=== PATIENT | male | born 1985 | race Caucasian/White ===

== ENCOUNTER → 2021-06-21 | Emergency (ER) | payer OTHER ==
[~2021-06-21] VITALS: Ht 185.4 cm; Wt 113.4 kg
[2021-06-21 15:25] VITALS: BP 140/82
== END | disposition left against medical advice (07) ==
LOC: ER 15:16
DX: M79.601 Pain in right arm (principal); Z53.21 Procedure and treatment not carried out due to patient leaving prior to being seen by health care provider

== ENCOUNTER 2021-07-06 17:10 | Emergency (ER) | payer OTHER ==
[~2021-07-06] VITALS: Ht 182.9 cm; Wt 97.5 kg
[2021-07-06 17:10] VITALS: BP 130/88
[2021-07-06 19:47] LABS: Basophils # (auto) 0 10 ^3/uL (0-0.2); Basophils % (auto) 0.4 % (0.0-2.0); Eosinophils # (auto) 0.1 10 ^3/uL (0-0.8); Eosinophils % (auto) 2.1 % (0.0-7.0); Hematocrit 48.3 % (41.0-53.0); Hemoglobin 16.9 g/dL (13.5-17.5); Lymphocytes # (auto) 1.5 10 ^3/uL (0.4-5.4); Mean Corpuscular Hemoglobin 31.7 pg (28.0-32.0); Mean Corpuscular Hgb Conc. 35.1 g/dL (32.0-36.0); Mean Corpuscular Volume 90.5 fL (80.0-100.0); Monocytes # (auto) 0.4 10 ^3/uL (0-1.3); Monocytes % (auto) 6.1 % (0.0-12.0); Neutrophils # (auto) 4.3 10 ^3/uL (1.6-8.6); Neutrophils % (auto) 67.4 % (37.0-80.0); Nucleated Red Blood Cells % 0.2 %; Red Blood Cells 5.33 10^6/uL (4.5-5.90); Red Cell Distribution Width 13.4 % (11.8-14.3); White Blood Cell 6.4 10^3/uL (4.4-10.8)
[2021-07-06 20:03] LABS: Albumin 4.6 g/dL (3.4-5.0); Calcium 9.8 mg/dL (8.5-10.1); Potassium 4.1 mmol/L (3.5-5.1)
[2021-07-06 20:07] LABS: BUN/Creatinine Ratio 8.6; Bilirubin, Total 0.5 mg/dL (0.2-1.0)
[2021-07-06 21:54] LABS: Urine WBC None Seen /hpf (0 - 3)
[2021-07-06 22:09] LABS: Urine Bacteria NONE SEEN /hpf (None Seen); Urine Blood Negative /uL (Negative); Urine Specific Gravity 1.005 (1.001-1.035)
== END 2021-07-06 20:53 | disposition left against medical advice (07) ==
LOC: ER 17:10 → EDUNIT# 17:10 → EDBD 17:10 → ER 20:53
DX: R07.89 Other chest pain (principal); Z53.29 Procedure and treatment not carried out because of patient's decision for other reasons
CPT/HCPCS: 36415; 71045; 80053; 81001; 83880; 84484; 85025; 93005

== ENCOUNTER 2021-11-25 13:24 | Emergency (ER) | payer OTHER, MEDICAID ==
[~2021-11-25] VITALS: Ht 185.4 cm; Wt 107.0 kg
[2021-11-25 13:31] VITALS: BP 127/76
== END 2021-11-25 14:28 | disposition left against medical advice (07) ==
LOC: ER 13:24
DX: R07.89 Other chest pain (principal); R06.02 Shortness of breath; Z53.21 Procedure and treatment not carried out due to patient leaving prior to being seen by health care provider
CPT/HCPCS: 93005

== ENCOUNTER 2021-12-19 11:41 | Emergency (ER) | payer OTHER, MEDICAID ==
[~2021-12-19] VITALS: Ht 185.4 cm; Wt 109.1 kg
[2021-12-19 12:19] LABS: Basophils # (auto) 0 10 ^3/uL (0-0.2); Basophils % (auto) 0.3 % (0.0-2.0); Eosinophils # (auto) 0.1 10 ^3/uL (0-0.8); Eosinophils % (auto) 2.7 % (0.0-7.0); Hematocrit 47.1 % (41.0-53.0); Hemoglobin 15.9 g/dL (13.5-17.5); Lymphocytes # (auto) 0.9 10 ^3/uL (0.4-5.4); Lymphocytes % (auto) 17.6 % (10.0-50.0); Mean Corpuscular Hgb Conc. 33.9 g/dL (32.0-36.0); Mean Corpuscular Volume 91.4 fL (80.0-100.0); Monocytes # (auto) 0.4 10 ^3/uL (0-1.3); Monocytes % (auto) 7.6 % (0.0-12.0); Neutrophils # (auto) 3.7 10 ^3/uL (1.6-8.6); Neutrophils % (auto) 71.8 % (37.0-80.0); Nucleated Red Blood Cells % 0.1 %; Red Blood Cells 5.15 10^6/uL (4.5-5.90); Red Cell Distribution Width 13.3 % (11.8-14.3); White Blood Cell 5.1 10^3/uL (4.4-10.8)
[2021-12-19 12:29] LABS: Albumin 4.3 g/dL (3.4-5.0); Calcium 9.2 mg/dL (8.5-10.1)
[2021-12-19 12:32] LABS: BUN/Creatinine Ratio 12.6; Bilirubin, Total 0.6 mg/dL (0.2-1.0); Total Protein 7.3 g/dL (6.4-8.2)
[2021-12-19] MEDS ORDERED: FAMOTIDINE 20 MG TAB PO ONE (13:30)
[2021-12-19] MEDS ORDERED: LIDOCAINE VISCOUS 2% 15ML UD PO ONE (13:30)
[2021-12-19] MEDS ORDERED: ALUM & MAG HYDROX-SIMETH LIQ(MAALOX) 30 ML PO ONE (13:30)
[2021-12-19] MEDS ORDERED: ONDANSETRON ODT 4 MG TAB PO ONE (13:30)
[2021-12-19] MEDS ORDERED: OMEP-434 PO (13:48)
[2021-12-19 14:12] VITALS: BP 123/84
== END 2021-12-19 14:11 | disposition home or self-care (01) ==
LOC: ER 11:41
DX: K21.9 Gastro-esophageal reflux disease without esophagitis (principal); F17.210 Nicotine dependence, cigarettes, uncomplicated
CPT/HCPCS: 36415; 71046; 80053; 84484; 85025; 93005; 99285; Q0162

== ENCOUNTER 2021-12-23 21:26 | Emergency (ER) | payer MEDICAID, OTHER ==
[~2021-12-23] VITALS: Ht 185.4 cm; Wt 105.0 kg
[~2021-12-23 21:26] MED LIST: OMEP-434 PO
[2021-12-23 22:04] VITALS: BP 131/85
[2021-12-23 22:45] LABS: Basophils # (auto) 0.1 10 ^3/uL (0-0.2); Basophils % (auto) 1.4 % (0.0-2.0); Eosinophils # (auto) 0.2 10 ^3/uL (0-0.8); Eosinophils % (auto) 3.4 % (0.0-7.0); Hemoglobin 15.9 g/dL (13.5-17.5); Lymphocytes # (auto) 1.7 10 ^3/uL (0.4-5.4); Lymphocytes % (auto) 28.9 % (10.0-50.0); Mean Corpuscular Hemoglobin 30.9 pg (28.0-32.0); Mean Corpuscular Hgb Conc. 34.6 g/dL (32.0-36.0); Mean Corpuscular Volume 89.3 fL (80.0-100.0); Monocytes # (auto) 0.4 10 ^3/uL (0-1.3); Monocytes % (auto) 7.1 % (0.0-12.0); Neutrophils # (auto) 3.5 10 ^3/uL (1.6-8.6); Neutrophils % (auto) 59.2 % (37.0-80.0); Nucleated Red Blood Cells % 0.1 %; Red Blood Cells 5.15 10^6/uL (4.5-5.90); Red Cell Distribution Width 13.1 % (11.8-14.3); White Blood Cell 5.9 10^3/uL (4.4-10.8)
[2021-12-23 23:03] LABS: Albumin 4.5 g/dL (3.4-5.0); Calcium 9.5 mg/dL (8.5-10.1); Potassium 4.1 mmol/L (3.5-5.1)
[2021-12-23 23:05] LABS: BUN/Creatinine Ratio 13.3
[2021-12-23 23:07] LABS: Bilirubin, Total 0.7 mg/dL (0.2-1.0); Total Protein 7.6 g/dL (6.4-8.2)
== END 2021-12-24 05:04 | disposition left against medical advice (07) ==
LOC: ER 21:26
DX: R07.89 Other chest pain (principal); F41.9 Anxiety disorder, unspecified; Z53.29 Procedure and treatment not carried out because of patient's decision for other reasons
CPT/HCPCS: 36415; 71045; 80053; 84484; 85025; 93005

== ENCOUNTER 2021-12-30 18:54 | Emergency (ER) | payer OTHER, MEDICAID ==
[~2021-12-30] VITALS: Ht 185.4 cm; Wt 104.0 kg
[2021-12-30 19:07] VITALS: BP 132/90
[2021-12-30 19:27] LABS: Basophils # (auto) 0 10 ^3/uL (0-0.2); Eosinophils # (auto) 0.2 10 ^3/uL (0-0.8); Monocytes # (auto) 0.5 10 ^3/uL (0-1.3); Neutrophils # (auto) 5.6 10 ^3/uL (1.6-8.6); White Blood Cell 7.4 10^3/uL (4.4-10.8)
[2021-12-30 19:34] LABS: Basophils % (auto) 0.2 % (0.0-2.0); Eosinophils % (auto) 2.7 % (0.0-7.0); Hematocrit 46.5 % (41.0-53.0); Hemoglobin 15.8 g/dL (13.5-17.5); Lymphocytes % (auto) 14.2 % (10.0-50.0); Mean Corpuscular Hemoglobin 30.9 pg (28.0-32.0); Monocytes % (auto) 6.8 % (0.0-12.0); Neutrophils % (auto) 76.1 % (37.0-80.0); Nucleated Red Blood Cells % 0.4 %; Red Cell Distribution Width 13.2 % (11.8-14.3)
[2021-12-30 19:41] LABS: Albumin 4.3 g/dL (3.4-5.0); Calcium 9.1 mg/dL (8.5-10.1); Magnesium 2.2 mg/dL (1.6-2.6); Potassium 3.7 mmol/L (3.5-5.1)
[2021-12-30 19:44] LABS: INR 0.94 (0.9-1.15)
[2021-12-30 19:45] LABS: BUN/Creatinine Ratio 11.3; Bilirubin, Total 0.7 mg/dL (0.2-1.0); Total Protein 7.4 g/dL (6.4-8.2)
== END 2021-12-30 19:51 | disposition left against medical advice (07) ==
LOC: ER 18:54
DX: R07.89 Other chest pain (principal); R20.0 Anesthesia of skin; Z53.21 Procedure and treatment not carried out due to patient leaving prior to being seen by health care provider
CPT/HCPCS: 36415; 71045; 80053; 83735; 83880; 84443; 84484; 85025; 85379; 85610; 85730; 93005

== ENCOUNTER 2023-11-09 17:05 | Emergency (ER) | payer BC, MEDICAID, OTHER | END 2023-11-09 17:40 | disposition left against medical advice (07) | LOC: ER 17:05 | DX: R51.9 Headache, unspecified (principal); Z53.21 Procedure and treatment not carried out due to patient leaving prior to being seen by health care provider ==

== ENCOUNTER 2024-04-10 17:30 | Emergency (ER) | payer BC ==
[~2024-04-10] VITALS: Ht 182.9 cm; Wt 109.0 kg
--- NOTE | 2024-04-10 18:00 | DVH ---
EXAM: XY CHEST PORTABLE CLINICAL HISTORY: CP TECHNIQUE: Single AP view of the chest WID: COMPARISON: CXRP on DOS: 12/30/21 FINDINGS: Lines and tubes: None Chest: The heart size and pulmonary vasculature is within normal limits. No pleural effusion, pneumothorax, or consolidation. The osseous structures are grossly intact. IMPRESSION: No acute cardiopulmonary abnormality.
[2024-04-10 18:04] LABS: Basophils # (auto) 0 10 ^3/uL (0-0.2); Basophils % (auto) 0.5 % (0.0-2.0); Eosinophils # (auto) 0.2 10 ^3/uL (0-0.8); Eosinophils % (auto) 3.4 % (0.0-7.0); Hematocrit 45.6 % (41.0-53.0); Hemoglobin 15.9 g/dL (13.5-17.5); Lymphocytes # (auto) 1.4 10 ^3/uL (0.4-5.4); Lymphocytes % (auto) 25.4 % (10.0-50.0); Mean Corpuscular Hgb Conc. 34.9 g/dL (32.0-36.0); Mean Corpuscular Volume 91.7 fL (80.0-100.0); Monocytes # (auto) 0.4 10 ^3/uL (0-1.3); Monocytes % (auto) 7.4 % (0.0-12.0); Neutrophils # (auto) 3.4 10 ^3/uL (1.6-8.6); Neutrophils % (auto) 63.3 % (37.0-80.0); Nucleated Red Blood Cells % 0.2 %; Platelet Count (auto) 187 10^3/uL (140-450); Red Blood Cells 4.97 10^6/uL (4.5-5.90); Red Cell Distribution Width 13.4 % (11.8-14.3); White Blood Cell 5.4 10^3/uL (4.4-10.8)
[2024-04-10 18:20] LABS: Alanine Aminotransferase 39 U/L (7-40); Anion Gap 5 (5-15); Aspartate Aminotransferase 28 U/L (13-40); BUN/Creatinine Ratio 12.4 (10.0-20.0); Blood Urea Nitrogen 14 mg/dL (9-23); Carbon Dioxide 30 mmol/L (20-31); Chloride 105 mmol/L (98-107); Glucose 89 mg/dL (74-106); Potassium 3.6 mmol/L (3.5-5.1); Sodium 140 mmol/L (136-145)
[2024-04-10 18:21] LABS: Bilirubin, Total 0.7 mg/dL (0.2-1.0); Total Protein 7.6 g/dL (5.7-8.2)
[2024-04-10 18:25] LABS: Alkaline Phosphatase 45 U/L (46-116); Calcium 10.6 mg/dL (8.7-10.4)
[2024-04-10 18:28] LABS: Urine Bacteria None Seen /hpf (None Seen); Urine WBC None Seen /hpf (0 - 3)
--- NOTE | 2024-04-10 18:30 | ECG ---
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
--- NOTE | 2024-04-10 19:06 | ED.PDOC ---
History of Present Illness HPI Comments 39 y/o M, with a history of anxiety, panic attacks, and former tobacco cigarettes and nicotine vape use, presents with c/o of chest pain, shortness of breath, dizziness, and fatigue for 1.5x days, today. Patient endorses on sudden and unprovoked onset of symptoms, intermittently, since initial onset, with no prior history of, that lasts a "few minutes" in duration "every 2 hours." He comments on pain being "heavy" in quality that feels like "[his] heart is slowing down and pumping 'syrup'." Patient reports history of "irregular heart rhythm" that he was diagnosed when following up with a computer meteorologist after having both stress tests and Halter monitor performed in the past but comments on current symptoms feeling different. He reports no additional relevant or pertinent history, such as recent travel, sick contact, or substance use. Patient denies having any palpitations, cough, nausea, vomiting, fever, chills, or other associated symptoms or modifiers at this time. Chief Complaint: Chest Pain Time Seen by MD: 16:15 Primary Care Provider: RAYMUNDO Reviewed Notes: Nurses Notes, Medications, Allergies Allergies: Coded Allergies: NO KNOWN ALLERGIES (Unverified , 07/06/21) Home Meds Active Scripts Omeprazole Magnesium (Omeprazole) 20 Mg Tab, 20 MG PO DAILY for 14 Days, #14 TAB Prov:PHUONG ZHANG MD 12/19/21 Information Source: Patient Mode of Arrival: Ambulatory Severity: Moderate Timing: Days Duration: Intermittent Prehospital treatment: None Review of Systems: REVIEW OF SYSTEMS: Fatigue, no fever, no chills HEENT: No sore throat, no earache, no congestion, no neck pain. Cardiac: Chest pain. No palpitations. Lungs: Shortness of breath, no cough. GI: No nausea, no vomiting, no diarrhea, no constipation, no abdominal pain : No dysuria, frequency, or urgency. No hematuria. Musculoskeletal: No joint pain , no joint swelling, no extremity edema. Skin: No rash, no itching. Neuro: Dizziness, no headache, no weakness Vital Signs Vital Signs Date Time Temp Pulse Resp B/P (MAP) Pulse Ox O2 Delivery O2 Flow Rate FiO2 04/10/24 19:06 67 04/10/24 17:40 99.0 18 113/73 (86) 97 Physical Exam General: Awake, alert and oriented. No acute distress. Skin: Skin in warm, dry and intact. Appropriate color for ethnicity. Nailbeds pink with no cyanosis. HEENT: The head is normocephalic and atraumatic. Conjunctivae are clear without exudates or hemorrhage. Sclera is non-icteric. EOM are intact. No signs of nystagmus. Eyelids are normal in appearance without swelling or lesions. Oral mucosa is pink and moist Neck: The neck is supple with normal range of motion. No JVD. Cardiac: Heart rate and rhythm are normal. No murmurs, gallops, or rubs are auscultated. Respiratory: No signs of respiratory distress. Lung sounds are clear in all lobes bilaterally without rales, ronchi, or wheezes. Abdominal: Abdomen is soft, non-tender without distention. Bowel sounds are present and normoactive in all four quadrants. Extremities: Upper and lower extremities are atraumatic in appearance without deformity or edema. Neurological: The patient is awake, alert and oriented to person, place, and time with normal speech. Speech is clear. There is no facial asymmetry. Psychiatric: Appropriate mood and affect. Good judgement and insight. No visual or auditory hallucinations. Past Medical History PAST MEDICAL HISTORY: Anxiety Past Medical History (Other): panic attacks Surgical History: Denies all surgeries Family History Family History: Reviewed,noncontributory to illness Social History Smoker: Non-Smoker (former tobacco cigarettes and nicotine vape use ) Alcohol: Sober Drugs: Denies Drug Use Lives In: Home Was a procedure done? Was a procedure done?: No EKG EKG : Pulse Rate (adult): 67 [place]: Normal Cardiac Rhythm: NSR Block: None Hypertrophy: None ST: Normal Differential Dx Considerations may include: PA, PE, arrhythmia, ACS, anxiety, panic attacks, angina, costochondritis, pericarditis, PNA, viral syndrome, URI X-Ray, Labs, Meds, VS Vital Signs Date Time Temp Pulse Resp B/P (MAP) Pulse Ox O2 Delivery O2 Flow Rate FiO2 04/10/24 19:06 67 04/10/24 18:28 67 04/10/24 17:40 99.0 81 18 113/73 (86) 97 04/10/24 17:36 74 Lab Test 04/10/24 18:51 04/10/24 17:47 04/10/24 17:45 Range/Units Troponin I High Sensitivity Pending 4 </=54 ng/L White Blood Count 5.4 4.4-10.8 10^3/uL Red Blood Count 4.97 4.5-5.90 10^6/uL Hemoglobin 15.9 13.5-17.5 g/dL Hematocrit 45.6 41.0-53.0 % Mean Corpuscular Volume 91.7 80.0-100.0 fL Mean Corpuscular Hemoglobin 32.0 28.0-32.0 pg Mean Corpuscular Hemoglobin Concent 34.9 32.0-36.0 g/dL Red Cell Distribution Width 13.4 11.8-14.3 % Platelet Count 187 140-450 10^3/uL Mean Platelet Volume 7.7 6.9-10.8 fL Neutrophils (%) (Auto) 63.3 37.0-80.0 % Lymphocytes (%) (Auto) 25.4 10.0-50.0 % Monocytes (%) (Auto) 7.4 0.0-12.0 % Eosinophils (%) (Auto) 3.4 0.0-7.0 % Basophils (%) (Auto) 0.5 0.0-2.0 % Neutrophils # (Auto) 3.4 1.6-8.6 10 ^3/uL Lymphocytes # (Auto) 1.4 0.4-5.4 10 ^3/uL Monocytes # (Auto) 0.4 0-1.3 10 ^3/uL Eosinophils # (Auto) 0.2 0-0.8 10 ^3/uL Basophils # (Auto) 0 0-0.2 10 ^3/uL Nucleated Red Blood Cells 0.2 % Sodium Level 140 136-145 mmol/L Potassium Level 3.6 3.5-5.1 mmol/L Chloride Level 105 98-107 mmol/L Carbon Dioxide Level 30 20-31 mmol/L Anion Gap 5 5-15 Blood Urea Nitrogen 14 9-23 mg/dL Creatinine 1.13 0.700-1.30 mg/dL Glomerular Filtration Rate Calc 84 >90 mL/min BUN/Creatinine Ratio 12.4 10.0-20.0 Serum Glucose 89 74-106 mg/dL Calcium Level 10.6 H 8.7-10.4 mg/dL Total Bilirubin 0.7 0.2-1.0 mg/dL Aspartate Amino Transferase (AST) 28 13-40 U/L Alanine Aminotransferase (ALT) 39 7-40 U/L Alkaline Phosphatase 45 L 46-116 U/L Total Protein 7.6 5.7-8.2 g/dL Albumin 5.0 H 3.2-4.8 g/dL Urine Color Light-yellow Yellow Urine Clarity Clear Clear Urine pH 7.0 5.0-9.0 Urine Specific [place] 1.017 1.001-1.035 Urine Protein Negative Negative Urine Ketones Negative Negative Urine Blood Negative Negative /uL Urine Nitrite Negative Negative Urine Bilirubin Negative Negative Urine Urobilinogen Normal Negative mg/dL Urine Leukocyte Esterase Negative Negative /uL Urine RBC 1 0 - 3 /hpf Urine WBC None seen 0 - 3 /hpf Urine Squamous Epithelial Cells None seen <5 /hpf Urine Bacteria None seen None Seen /hpf Urine Glucose Normal Normal mg/dL [place] [address] Ph: [phone] DIAGNOSTIC IMAGING Diagnostic Imaging Report : [id number] Signed PATIENT: KALI GARVEY ACCT: [id number] UNIT: [id number] : 1985 LOC: ER ROOM / BED: / AGE / SEX: 39 / M ADM STATUS: REG ER SERVICE 37 ORDERING PHYSICIAN: RINA MACK PROCEDURE(s): CXRP - CHEST PORTABLE REASON: CP ORDER NUMBER(s): [id number], ACCESSION NUMBER(s): [id number] EXAM: XY CHEST PORTABLE CLINICAL HISTORY: CP TECHNIQUE: Single AP view of the chest WID: COMPARISON: CXRP on DOS: 12/30/21 FINDINGS: Lines and tubes: None Chest: The heart size and pulmonary vasculature is within normal limits. No pleural effusion, pneumothorax, or consolidation. The osseous structures are grossly intact. IMPRESSION: No acute cardiopulmonary abnormality. ATED BY: AYLEEN SPRINGER MD DICTATED DATE/TIME: 04/10/241757 SIGNED BY: AYLEEN SPRINGER MD SIGNED DATE/TIME: 04/10/241757 CC: Time of 1ST Reevaluation: 16:45 Reevaluation 1ST: Unchanged Patient Education/Counseling: Diagnosis, Treatment Family Education/Counseling: No Family Present Departure 1 Departure Time of Disposition: 19:45 Impression: Primary Impression: Chest pain Disposition: 01 HOME / SELF CARE / HOMELESS Condition: Stable Additional Instructions: ED DISCHARGE INSTRUCTIONS Instructions: Please read all instructions provided in this packet carefully. Although you have been discharged from the Emergency Department, this does not mean that you have a "clean bill of health". No definitive diagnosis for your symptoms has been made today. It is possible that you are in the process of developing a serious illness. This is why you must return to the ED without fail if any new or worsening symptoms (especially if your symptoms include chest pain, trouble breathing, abdominal pain, fever, headache, confusion, trouble seeing, or trouble walking) It is also very important that you see a primary care doctor within the next 3-5 days to follow up. Schedule an appointment with your computer meteorologist for further evaluation of your symptoms within the next week as well. If you are unable to get an appointment, return to the ED for re-evaluation. CHEST PAIN EDUCATION There are many things that can cause chest pain. Some are not serious and will get better on their own in a few days. But some kinds of chest pain need more testing and treatment. Your doctor may have recommended a follow-up visit in the next few days. If you are not getting better, you may need more tests or treatment. Even though your doctor has released you, you still need to watch for any problems. The doctor carefully checked you, but sometimes problems can develop later. If you have new symptoms or if your symptoms do not get better, get medical care right away. If you have worse or different chest pain or pressure that lasts more than 5 minutes or you passed out (lost consciousness), call 911 or seek other emergency help right away. A medical visit is only one step in your treatment. Even if you feel better, you still need to do what your doctor recommends, such as going to all suggested follow-up appointments and taking medicines exactly as directed. This will help you recover and help prevent future problems. How can you care for yourself at home? Rest until you feel better. Take your medicine exactly as prescribed. Call your doctor if you think you are having a problem with your medicine. Do not drive after taking a prescription pain medicine. When should you call for help? Call 911 if: You passed out (lost consciousness). You have severe difficulty breathing. You have symptoms of a heart attack. These may include: Chest pain or pressure, or a strange feeling in your chest. Sweating. Shortness of breath. Nausea or vomiting. Pain, pressure, or a strange feeling in your back, neck, jaw, or upper belly or in one or both shoulders or arms. Lightheadedness or sudden weakness. A fast or irregular heartbeat. After you call 911, the printing machine operator tape rules may tell you to chew 1 adult-strength or 2 to 4 low-dose aspirin. Wait for an ambulance. Do not try to drive yourself. Call your doctor now or seek immediate medical care if: You have any trouble breathing. You have new or different chest pain. You are dizzy or lightheaded, or you feel like you may faint. Watch closely for changes in your health, and be sure to contact your doctor if you do not get better as expected. Current as of: October 26, 2023 Author: [employer] Staff? Comments Extensive evaluation was performed in attempt to identify or rule out: (See differential diagnosis section) The following tests were ordered, and results were reviewed by me: (See diag nostic results section) The following test were independently interpreted by me: N/A I reviewed and agreed with the following test results read by other providers: N/A I reviewed the following notes from the pt's past medical encounters: (None available at this time) Additional information was gathered from interviewing the following independent historians: N/A Discussion of management or test interpretation with external physician/other qualified health care team coordinator scheduler: N/A Addressed [ ]one or more chronic illnesses with severe exacerbation, progression, or side effects of treatment: [ ]an acute or chronic illness that poses a threat to life or bodily function: [ ] Decision regarding hospitalization or escalation of hospital level of care: Risk and benefits of admission for further treatment of patient's condition was considered. Due to patient's current clinical condition, high risk of decline and poor outcome if discharged and need for further inpatient management and monitoring, patient will be admitted to the hospital. Drug therapy requiring intensive monitoring for toxicity: N/A Parenteral controlled substances: N/A Decision regarding elective major surgery with identified patient or procedure risk factors: N/A Decision regarding emergency major surgery: N/A Decision not to resuscitate or to de-escalate care because of poor prognosis: N/A Diagnosis or treatment significantly limited by social determinants of health: N/A Decision regarding hospitalization or escalation of hospital level of care: Risks and benefits of admission for further treatment of patient's condition was considered however due to patient's stable condition patient will be discharged to follow up closely or return to care for worsening of condition or inability to follow up. Critical Care Note Critical Care Time?: No Stability Stability form required: No Heart Score Heart Score: Heart Score Response (Comments) Value History Slightly Suspicious 0 EKG Normal 0 Age <45 0 Risk Factors 1 or 2 risk factors 1 Total 1 I personally scribed for ZACK MONGE MD ([email or web address]) on 04/10/24 at 19:06. Electronically submitted by Red Burnett ([email or web address]). ZACK MONGE MD Apr 10, 2024 19:06
[2024-04-10 19:14] LABS: Urine Blood Negative /uL (Negative); Urine Clarity Clear (Clear); Urine Color Light-Yellow (Yellow); Urine Protein, UAD Negative (Negative); Urine Specific Gravity 1.017 (1.001-1.035); Urine Squamous Epithelial Cell None Seen /hpf (<5); Urine Urobilinogen Normal (Negative)
[2024-04-10 20:27] VITALS: BP 132/85; PULSE 70; RESP 20; TEMP 98; O2SAT 96
== END 2024-04-10 20:33 | disposition home or self-care (01) ==
LOC: ER 17:30
DX: R07.9 Chest pain, unspecified (principal); R06.02 Shortness of breath; R42 Dizziness and giddiness; Z79.899 Other long term (current) drug therapy
CPT/HCPCS: 36415; 71045; 80053; 81001; 84484; 85025; 93005

== ENCOUNTER 2024-05-31 07:57 | Inpatient (IN) | payer BC ==
[~2024-05-31] VITALS: Ht 185.4 cm; Wt 111.0 kg
--- NOTE | 2024-05-31 08:04 | ECG ---
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
[2024-05-31] MEDS: ASPirin 325 MG TAB PO ONE (08:29)
[2024-05-31] MEDS: LORazepam 2MG/ML-1ML VIAL IV ONE (08:30)
[2024-05-31] MEDS: NITROGLYCERIN 0.4 MG SL TAB SL ONE (08:30)
--- NOTE | 2024-05-31 08:35 | ED.PDOC ---
HPI Comments 39 y/o M, with PMHX of anxiety presents to the ED for CC of chest pain. Patient states, that he has been experiencing left sided non-radiating chest pain xhours. Patient relays, that pain came on suddenly with light exertion at work. Patient comments on, experiencing similar symptoms in past with associated shortness of breath and chest discomfort. Patient describes pain as tightness. Patient denies palpitations, abdominal pain, headache, numbness, or weakness. No other associated symptoms, modifiers, recent injuries or sick contacts at this time. Chief Complaint: Chest Pain Time Seen by MD: 08:20 Primary Care Provider: RAYMUNDO Reviewed Notes: Nurses Notes, Medications, Allergies Allergies: Coded Allergies: NO KNOWN ALLERGIES (Unverified , 07/06/21) Home Meds Active Scripts Omeprazole Magnesium (Omeprazole) 20 Mg Tab, 20 MG PO DAILY for 14 Days, #14 TAB Prov:PHUONG ZHANG MD 12/19/21 Information Source: Patient Mode of Arrival: Ambulatory Severity: Mild Timing: Hours Duration: Since onset Prehospital treatment: None Location: Chest (L) Radiation: No Radiation Quality: Tightness Onset: With Light Exertion Cardiac Risk Factors: None PE Risk Factors: None History of: Similar pain in past Modifying Factors: Nothing Associated Signs and Symptoms: SOB Past Medical History PAST MEDICAL HISTORY: Anxiety Surgical History: Denies all surgeries Family History Family History: Reviewed,noncontributory to illness Social History Smoker: Non-Smoker Alcohol: Sober Drugs: Denies Drug Use Lives In: Home Constitutional: denies: chills, diaphoresis, fatigue, fever, malaise, sweats, weakness, others EENTM: denies: blurred vision, double vision, ear bleeding, ear discharge, ear drainage, ear pain, ear ringing, eye pain, eye redness, hearing loss, mouth pain, mouth swelling, nasal discharge, nose bleeding, nose congestion, nose tino n, photophobia, tearing, throat pain, throat swelling, voice changes, others Respiratory: reports: shortness of breath; denies: cough, hemoptysis, orthopnea, SOB at rest, SOB with excertion, stridor, wheezing, others Cardiovascular: reports: chest pain; denies: dizzy spells, diaphoresis, Dyspnea on exertion, edema, irregular heart beat, left arm pain, lightheadedness, palpitations, PND, syncope, others Gastrointestinal: denies: abdomen distended, abdominal pain, blood streaked bowels, constipated, diarrhea, dysphagia, difficulty swallowing, hematemesis, melena, nausea, poor appetite, poor fluid intake, rectal bleeding, rectal pain, vomiting, others Genitourinary: denies: burning, dysuria, flank pain, frequency, hematuria, incontinence, penile discharge, penile sore, pain, testicle pain, testicle swelling, urgency, others Neurological: denies: dizziness, fainting, headache, left sided numbness, left sided weakness, numbness, paresthesia, pre-existing deficit, right sided numbness, right sided weakness, seizure, speech problems, tingling, tremors, weakness, others Musculoskeletal: denies: back pain, gout, joint pain, joint swelling, muscle pain, muscle stiffness, neck pain, others Integumetry: denies: bruises, change in color, change in hair/nails, dryness, laceration, lesions, lumps, rash, wounds, others Allergic/Immunocompromised: denies: Difficulty Healing, Frequent Infections, Hives, Itching, others Hematologic/Lymphatic: denies: anemia, blood clots, easy bleeding, easy bruising, swollen glands, others Endocrine: denies: excessive hunger, excessive sweating, excessive thirst, excessive urination, flushing, intolerance to cold, intolerance to heat, unexplained weight gain, unexplained weight loss, others Psychiatric: denies: anxiety, bipolar disorder, depression, hopeless, panic disorder, schizophrenia, sleepless, suicidal, others All Other Systems: Reviewed and Negative Physical Exam General Appearance: Moderate Distress HEENT: Normal ENT Inspection, Pharynx Normal, TMs Normal Neck: Full Range of Motion, Non-Tender, Normal, Normal Inspection Respiratory: Chest Non-Tender, Lungs Clear, No Accessory Muscle Use, No Re spiratory Distress, Normal Breath Sounds Cardiovascular: Tachycardia Breast Exam: Deferred Gastrointestinal: No Organomegaly, Non Tender, No Pulsatile Mass, Normal Bowel Sounds, Soft Genitalia: Deferred Pelvic: Deferred Rectal: Deferred Extremities: No calf tenderness, Normal capillary refill, Normal inspection, Normal range of motion, Non-tender, No pedal edema Musculoskeletal : Apperance: Normal Neurologic: Alert, cotton classer aide II-XII nml as Tested, No Motor Deficits, Normal Affect, Normal Mood, No Sensory Deficits Cerebellar Function: NOT DONE Reflexes: NOT DONE Skin: Dry, Normal Color, Warm Peripheral Pulses: 3+ Radial (R), 3+ Radial (L) Lymphatic: No Adenopathy Was a procedure done? Was a procedure done?: No CP Differential Dx Differential Diagnosis: A-fib, A-Flutter, Angina, Anxiety / Panic Attack, Atrial Dysrhythmia, Electrolyte Disorder Differential Diagnosis: HTN Essential, HTN Accelerated Differential Diagnosis: Angina, Chest Wall Pain, Costochondritis X-Ray, Labs, Meds, VS Vital Signs Date Time Temp Pulse Resp B/P (MAP) Pulse Ox O2 Delivery O2 Flow Rate FiO2 05/31/24 09:32 131/85 05/31/24 09:29 97.9 66 17 131/85 (100) 97 97.9 05/31/24 09:29 66 05/31/24 08:51 78 18 98 Room Air* 0 21 05/31/24 08:30 98.0 78 20 134/87 (103) 98 98.0 05/31/24 08:30 134/87 05/31/24 08:11 97.7 95 18 133/96 (108) 99 05/31/24 08:03 86 Lab Test 05/31/24 09:19 05/31/24 08:19 Range/Units Troponin I High Sensitivity 3 L 3 L </=54 ng/L White Blood Count 6.6 4.4-10.8 10^3/uL Red Blood Count 5.10 4.5-5.90 10^6/uL Hemoglobin 16.3 13.5-17.5 g/dL Hematocrit 46.4 41.0-53.0 % Mean Corpuscular Volume 90.9 80.0-100.0 fL Mean Corpuscular Hemoglobin 32.0 28.0-32.0 pg Mean Corpuscular Hemoglobin Concent 35.2 32.0-36.0 g/dL Red Cell Distribution Width 13.3 11.8-14.3 % Platelet Count 182 140-450 10^3/uL Mean Platelet Volume 7.7 6.9-10.8 fL Neutrophils (%) (Auto) 78.0 37.0-80.0 % Lymphocytes (%) (Auto) 15.0 10.0-50.0 % Monocytes (%) (Auto) 4.7 0.0-12.0 % Eosinophils (%) (Auto) 1.9 0.0-7.0 % Basophils (%) (Auto) 0.4 0.0-2.0 % Neutrophils # (Auto) 5.2 1.6-8.6 10 ^3/uL Lymphocytes # (Auto) 1.0 0.4-5.4 10 ^3/uL Monocytes # (Auto) 0.3 0-1.3 10 ^3/uL Eosinophils # (Auto) 0.1 0-0.8 10 ^3/uL Basophils # (Auto) 0 0-0.2 10 ^3/uL Nucleated Red Blood Cells 0.0 % Sodium Level 141 136-145 mmol/L Potassium Level 4.2 3.5-5.1 mmol/L Chloride Level 108 H 98-107 mmol/L Carbon Dioxide Level 25 20-31 mmol/L Anion Gap 8 5-15 Blood Urea Nitrogen 18 9-23 mg/dL Creatinine 1.09 0.700-1.30 mg/dL Glomerular Filtration Rate Calc 88 >90 mL/min BUN/Creatinine Ratio 16.5 10.0-20.0 Serum Glucose 104 74-106 mg/dL Hemoglobin A1c Pending Calcium Level 10.5 H 8.7-10.4 mg/dL Triglycerides Level Pending Cholesterol Level Pending LDL Cholesterol Pending HDL Cholesterol Pending Thyroid Stimulating Hormone (TSH) Pending Current Medications Medications (Trade) Dose Ordered Sig/Darian Route Start Time Stop Time Status Last Admin Aspirin 325 mg ONCE ONCE PO 05/31/24 08:30 05/31/24 08:31 DC 05/31/24 08:29 Nitroglycerin (Ntrostat Sublingual) 0.4 mg ONCE ONCE SL 05/31/24 08:30 05/31/24 08:31 DC 05/31/24 08:30 [place] [address] Ph: [phone] DIAGNOSTIC IMAGING Diagnostic Imaging Report : [id number] Signed PATIENT: KALI GARVEY JACCT: [id number] UNIT: [id number] : 1985 LOC: ER ROOM / BED: / AGE / SEX: 39 / M ADM STATUS: REG ER SERVICE [id number] ORDERING PHYSICIAN: BRENDA PANIAGUA PROCEDURE(s): CXR1 - CHEST XRAY 1 VIEW REASON: cp ORDER NUMBER(s): [id number], ACCESSION NUMBER(s): [id number] EXAM: XY CHEST XRAY 1 VIEW Indication: cp Technique: Single frontal view of the chest was obtained Comparison: XY CHEST PORTABLE on DOS: 04/10/24, CXRP on DOS: 12/30/21, CHEST PO RTABLE on DOS: 12/23/21, CHEST PORTABLE on DOS: 07/06/21, CXRP on DOS: 07/06/21 FINDINGS: Lines and Tubes: None Lungs: No focal consolidation. Pleura: No effusion. No pneumothorax. Cardiomediastinal contours: Unremarkable Bones: No acute osseous abnormality. IMPRESSION: No acute cardiopulmonary disease. ATED BY: BRENDA CAST MD DICTATED DATE/TIME: 05/31/24 1013 SIGNED BY: BRENDA CAST MD SIGNED DATE/TIME: 05/31/24 1013 CC: Patient alert. Complaining of chest pain. Vitals stable. Answering questions. Was given aspirin. Was given nitro. Continues to have chest pain. Severe anxiety. Was given Ativan. EKG reviewed does not show any acute changes. Echocardiogram. Stress test. Cardiology consultation. Explained to the patient. Continue cardiac monitoring. Time of 1ST Reevaluation: 08:50 Reevaluation 1ST: Unchanged Patient Education/Counseling: Diagnosis, Treatment Family Education/Counseling: No Family Present Departure 1 Departure Time of Disposition: 08:55 Impression: Primary Impression: Chest pain of unknown etiology Disposition: 09 ADMITTED INPATIENT Admit to: Med Surg Condition: Guarded Critical Care Note Critical Care Time?: No Stability Stability form required: No Heart Score Heart Score: Heart Score Response (Comments) Value History Slightly Suspicious 0 EKG Normal 0 Age <45 0 Risk Factors 1 or 2 risk factors 1 Troponin Normal limit 0 Total 1 I personally scribed for DEEPTHI RUBIN MD ([email or web address]) on 05/31/24 at 08:35. Electronically submitted by Gaby Coronado ([email or web address]). I personally scribed for DEEPTHI RUBIN MD ([email or web address]) on 05/31/24 at 10:25. Electronically submitted by Gaby Coronado ([email or web address]). DEEPTHI RUBIN MD May 31, 2024 08:35
[2024-05-31 08:51] VITALS: PULSE 78; RESP 18; O2SAT 98
[2024-05-31 08:56] LABS: Basophils # (auto) 0 10 ^3/uL (0-0.2); Basophils % (auto) 0.4 % (0.0-2.0); Eosinophils # (auto) 0.1 10 ^3/uL (0-0.8); Eosinophils % (auto) 1.9 % (0.0-7.0); Hematocrit 46.4 % (41.0-53.0); Hemoglobin 16.3 g/dL (13.5-17.5); Mean Corpuscular Hgb Conc. 35.2 g/dL (32.0-36.0); Mean Corpuscular Volume 90.9 fL (80.0-100.0); Monocytes # (auto) 0.3 10 ^3/uL (0-1.3); Monocytes % (auto) 4.7 % (0.0-12.0); Neutrophils # (auto) 5.2 10 ^3/uL (1.6-8.6); Platelet Count (auto) 182 10^3/uL (140-450); Red Cell Distribution Width 13.3 % (11.8-14.3); White Blood Cell 6.6 10^3/uL (4.4-10.8)
[2024-05-31 08:58] LABS: Potassium 4.2 mmol/L (3.5-5.1); Sodium 141 mmol/L (136-145)
[2024-05-31 08:59] LABS: Anion Gap 8 (5-15); Carbon Dioxide 25 mmol/L (20-31)
[2024-05-31 09:04] LABS: BUN/Creatinine Ratio 16.5 (10.0-20.0); Blood Urea Nitrogen 18 mg/dL (9-23); Calcium 10.5 mg/dL (8.7-10.4); Chloride 108 mmol/L (98-107); Glucose 104 mg/dL (74-106)
--- NOTE | 2024-05-31 10:13 | DVH ---
EXAM: XY CHEST XRAY 1 VIEW Indication: cp Technique: Single frontal view of the chest was obtained Comparison: XY CHEST PORTABLE on DOS: 04/10/24, CXRP on DOS: 12/30/21, CHEST PORTABLE on DOS: 12/23/21, CHEST PORTABLE on DOS: 07/06/21, CXRP on DOS: 07/06/21 FINDINGS: Lines and Tubes: None Lungs: No focal consolidation. Pleura: No effusion. No pneumothorax. Cardiomediastinal contours: Unremarkable Bones: No acute osseous abnormality. IMPRESSION: No acute cardiopulmonary disease.
[2024-05-31 10:35] LABS: Triglycerides 78 mg/dL (< 150)
[2024-05-31 10:37] LABS: Cholesterol 188 mg/dL (< 200); HDL Cholesterol 52 mg/dL (40-59)
[2024-05-31 10:38] LABS: LDL Cholesterol 125 mg/dL (< 100)
[2024-05-31] MEDS ORDERED: MORPHINE SULFATE INJ 2 MG/ml SYRG IV PRN (11:30)
[2024-05-31] MEDS ORDERED: ACETAMINOPHEN 325 MG TAB PO PRN (11:30)
[2024-05-31] MEDS ORDERED: NITROGLYCERIN 0.4 MG SL TAB SL PRN (11:30)
--- NOTE | 2024-05-31 11:44 | DVHHP2 ---
History of Present Illness Reason for Visit: Chest pain History of Present Illness Lucien Morley is a 39-year-old male with past medical history of hypertension and anxiety who presents to the ED with chest pain and tightness nonradiating that started around 7:00 a.m. while he was at work. 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 He also endorses shortness of breath and bilateral upper extremity and lower extremity numbness and tingling. Patient states that he has a usual stressors in his life but nothing out of the ordinary or new. Patient denies any recent trauma or injury, recent illnesses, abdominal pain, nausea, vomiting, fever, chills, wheezing, lightheadedness, dizziness, and weakness. Patient also reports that at the age of [age] years old he was in rehab for alcohol abuse and around 9 years ago he had stopped rehab. Patient states that if he does not have to take medications he will not take anything. He also states that he does not take any home medications. Cardiovascular: HTN Psych: Anxiety Past Surgical History: None Family History: Cancer, Other (Dad with colon cancer) Smoke: Quit ALCOHOL: none (Quit) Drugs: None (Quit marijuana) Lives: Alone Domestic Violence: Neg Review of Systems Respiratory: Shortness of breath Cardiovascular: Chest Pain Musculoskeletal: other (Numbness and tingling bilateral upper and lower extrem ities) Allergies: Coded Allergies: NO KNOWN ALLERGIES (Unverified , 07/06/21) Exam Vital Signs Vital Signs Date Time Temp Pulse Resp B/P (MAP) Pulse Ox O2 Delivery O2 Flow Rate FiO2 05/31/24 09:32 131/85 05/31/24 09:29 97.9 66 17 97 97.9 05/31/24 08:51 Room Air* 0 21 General Appearance: Alert, Oriented X3, Cooperative, No acute distress HEENT: Atraumatic, PERRLA, EOMI, Mucous membr. moist/pink Respiratory: Clear to auscultation, Normal air movement Cardiovascular: Regular rate, Normal S1, Normal S2, No murmurs Abdominal: Normal bowel sounds, Soft, No tenderness, No hepatospenomegaly, No masses Extremities: No clubbing, No cyanosis, No edema, Normal pulses, No tenderness/swelling Skin: No significant lesion Neuro: Normal speech, Strength at 5/5 X4 ext, Normal tone, Sensation intact Psych/Mental Status: Mental status NL, Other (Anxious) Labs/Xrays Labs Test 05/31/24 09:19 05/31/24 08:19 Range/Units Troponin I High Sensitivity 3 L </=54 ng/L White Blood Count 6.6 4.4-10.8 10^3/uL Red Blood Count 5.10 4.5-5.90 10^6/uL Hemoglobin 16.3 13.5-17.5 g/dL Hematocrit 46.4 41.0-53.0 % Mean Corpuscular Volume 90.9 80.0-100.0 fL Mean Corpuscular Hemoglobin 32.0 28.0-32.0 pg Mean Corpuscular Hemoglobin Concent 35.2 32.0-36.0 g/dL Red Cell Distribution Width 13.3 11.8-14.3 % Platelet Count 182 140-450 10^3/uL Mean Platelet Volume 7.7 6.9-10.8 fL Neutrophils (%) (Auto) 78.0 37.0-80.0 % Lymphocytes (%) (Auto) 15.0 10.0-50.0 % Monocytes (%) (Auto) 4.7 0.0-12.0 % Eosinophils (%) (Auto) 1.9 0.0-7.0 % Basophils (%) (Auto) 0.4 0.0-2.0 % Neutrophils # (Auto) 5.2 1.6-8.6 10 ^3/uL Lymphocytes # (Auto) 1.0 0.4-5.4 10 ^3/uL Monocytes # (Auto) 0.3 0-1.3 10 ^3/uL Eosinophils # (Auto) 0.1 0-0.8 10 ^3/uL Basophils # (Auto) 0 0-0.2 10 ^3/uL Nucleated Red Blood Cells 0.0 % Sodium Level 141 136-145 mmol/L Potassium Level 4.2 3.5-5.1 mmol/L Chloride Level 108 H 98-107 mmol/L Carbon Dioxide Level 25 20-31 mmol/L Anion Gap 8 5-15 Blood Urea Nitrogen 18 9-23 mg/dL Creatinine 1.09 0.700-1.30 mg/dL Glomerular Filtration Rate Calc 88 >90 mL/min BUN/Creatinine Ratio 16.5 10.0-20.0 Serum Glucose 104 74-106 mg/dL Hemoglobin A1c 5.1 <5.7 % A1C Calcium Level 10.5 H 8.7-10.4 mg/dL Triglycerides Level 78 < 150 mg/dL Cholesterol Level 188 < 200 mg/dL LDL Cholesterol 125 H < 100 mg/dL HDL Cholesterol 52 40-59 mg/dL Thyroid Stimulating Hormone (TSH) 0.68 0.55-4.78 uIU/mL EXAM: XY CHEST XRAY 1 VIEW Indication: cp Technique: Single frontal view of the chest was obtained Comparison: XY CHEST PORTABLE on DOS: 04/10/24, CXRP on DOS: 12/30/21, CHEST PORTABLE on DOS: 12/23/21, CHEST PORTABLE on DOS: 07/06/21, CXRP on DOS: 07/06/21 FINDINGS: Lines and Tubes: None Lungs: No focal consolidation. Pleura: No effusion. No pneumothorax. Cardiomediastinal contours: Unremarkable Bones: No acute osseous abnormality. IMPRESSION: No acute cardiopulmonary disease. Assessment/Plan Assessment/Plan Assessment Chest pain Bilateral upper extremity and lower extremity numbness and tingling likely due to anxiety History of anxiety History of hypertension History of ETOH abuse, was in rehab at 29 years of age Ex tobacco use Ex marijuana use Plan Admit to tele Nitro given in ED Aspirin given in ED Patient refused Ativan in ED UDS EKG Troponin negative Chest x-ray noted TSH Lipid panel A1c Echo ordered ACS workup ACS protocol Antiemetics Pain management Diet No home medications reconciled Discussed plan of care with patient and nurse Educated patient on continuing cessation of EtOH, tobacco, and marijuana use Plan discussed with: Patient My Orders Orders - BRENDA PANIAGUA [employer]CH[employer]IC Procedure Category Date Status Time Chest Xray 1 View XY 05/31/24 Resulted 09:42 Admit ADMIT 05/31/24 Transmitted 11:23 Code Status CODE 05/31/24 Transmitted 11:23 Vital Signs JEFFERY 05/31/24 Transmitted 11:23 Product Safety Technical Assistant JEFFERY 05/31/24 Transmitted 11:23 Cardiac DIET 05/31/24 Transmitted Diet-2gna,Lofat,Lochol Lunch Aspirin Tablet PHA 06/01/24 Transmitted 10:00 Lipitor 40mg Hs PHA 05/31/24 Transmitted Hi-Intensity 22:00 Acetaminophen Tablet PHA 05/31/24 Transmitted (Tylenol Tablet) 11:30 Complete Blood Count LAB 06/01/24 Verified 04:00 Basic Metabolic Panel LAB 06/01/24 Verified 04:00 Magnesium LAB 06/01/24 Verified 04:00 Echo 2d Mode Cardiac US 05/31/24 Transmitted DOP 11:23 Electrocardigram EKG 06/01/24 Transmitted 04:00 Troponin-I Hs LAB 05/31/24 Transmitted 11:23 Cardiac JEFFERY 05/31/24 Transmitted Rehabilitation - Outpa Nitroglycerin PHA 05/31/24 Transmitted Sublingual (Ntrostat 11:30 Morphine Sulfate PHA 05/31/24 Transmitted Injection 11:30 Stat Ekg For Chest [facility] 05/31/24 Transmitted Pain 11:23 Notify Md Of Changes [facility] 05/31/24 Transmitted From Base 11:23 Pediatric Intensive Physician For [facility] 05/31/24 Transmitted 24 Hours 11:23 Emergency Dysrhythmia [facility] 05/31/24 Transmitted Protocol 11:23 Rhythm Strips Once [facility] 05/31/24 Transmitted Every Shift 11:23 Oxygen By Nasal RT 05/31/24 Transmitted Cannula 11:23 Date of Service: May 31, 2024 Billing Provider: BRENDA PANIAGUA Common Visit Codes: [id number] INP/OBS CARE (HIGH) BRENDA PANIAGUA May 31, 2024 11:44
[2024-05-31 12:13] VITALS: BP 110/75; PULSE 55; RESP 19; TEMP 97.8; O2SAT 95
[2024-05-31 16:35] VITALS: BP 119/73; PULSE 63; RESP 16; TEMP 98.1; O2SAT 97
[2024-05-31 17:37] VITALS: BP 110/75; PULSE 55; RESP 19; TEMP 97.8; O2SAT 95
[2024-05-31] MEDS: ATORVASTATIN 20 MG TAB PO SCH (21:55)
[2024-06-01 06:20] LABS: Anion Gap 5 (5-15); Calcium 10.2 mg/dL (8.7-10.4); Carbon Dioxide 28 mmol/L (20-31); Potassium 4.1 mmol/L (3.5-5.1); Sodium 141 mmol/L (136-145)
[2024-06-01 06:21] LABS: Chloride 108 mmol/L (98-107)
[2024-06-01 06:22] LABS: Basophils # (auto) 0 10 ^3/uL (0-0.2); Basophils % (auto) 0.4 % (0.0-2.0); Eosinophils # (auto) 0.2 10 ^3/uL (0-0.8); Eosinophils % (auto) 3.2 % (0.0-7.0); Hematocrit 46.4 % (41.0-53.0); Hemoglobin 15.9 g/dL (13.5-17.5); Lymphocytes # (auto) 1.1 10 ^3/uL (0.4-5.4); Lymphocytes % (auto) 23.3 % (10.0-50.0); Mean Corpuscular Hemoglobin 31.6 pg (28.0-32.0); Mean Corpuscular Hgb Conc. 34.3 g/dL (32.0-36.0); Mean Corpuscular Volume 92.2 fL (80.0-100.0); Monocytes # (auto) 0.3 10 ^3/uL (0-1.3); Monocytes % (auto) 6.9 % (0.0-12.0); Neutrophils # (auto) 3.2 10 ^3/uL (1.6-8.6); Neutrophils % (auto) 66.2 % (37.0-80.0); Nucleated Red Blood Cells % 0.3 %; Platelet Count (auto) 171 10^3/uL (140-450); Red Blood Cells 5.03 10^6/uL (4.5-5.90); Red Cell Distribution Width 13.2 % (11.8-14.3); White Blood Cell 4.8 10^3/uL (4.4-10.8)
[2024-06-01 06:26] LABS: BUN/Creatinine Ratio 13.5 (10.0-20.0); Blood Urea Nitrogen 14 mg/dL (9-23)
[2024-06-01 06:32] LABS: Glucose 106 mg/dL (74-106)
[2024-06-01 08:30] VITALS: BP 108/69; PULSE 63; RESP 17; TEMP 98.2; O2SAT 96
[2024-06-01] MEDS: ASPirin 81 mg TAB PO SCH (08:40)
[2024-06-01 13:00] VITALS: BP 104/58; PULSE 60; RESP 17; TEMP 97.5; O2SAT 97
--- NOTE | 2024-06-01 14:01 | DVHSR ---
APPROVED REPORT EXAM: Two-dimensional and M-mode echocardiogram with Doppler and color Doppler. Blood Pressure: 131/85 mmHg INDICATION Chest Pain RISK FACTORS Height: 6' 1", Weight: 240 DIMENSIONS LVDd5.7 (3.8-5.7cm)LA (2D)4.3 (1.9-4.0cm)Aortic Root3.9 (2.0-3.7cm) LVDs4.0 (2.5-4.0cm)LA (MM) (1.9-4.0cm)Aortic Cusp Exc2.1 (1.5-2.0cm) EF (%) 57.0 (55-70%)Rt. Atrium4.4 (1.9-4.0cm)Asc. Aorta cm IVSd1.2 (0.7-1.1cm)RV (D) (1.8-2.4cm) PWd1.0 (0.7-1.1cm) Mitral Valve MitralMitral Stenosis E wave0.80m/sMV Mean GR.mmHg A wave0.70m/sMV Peak GR.mmHg E/A ratio1.12D MVAcm2 Aortic Valve Aortic ValveAortic Stenosis V10.90m/Forest Mean GR.3mmHg V21.10m/Forest Peak GR.5mmHg LVOT Diameter2.7 (1.8-2.4cm)Doppler AVA4.68cm2 Pulmonic Valve V20.60m/s Conclusion lvef 55-60% by visual estimate normal rv function normal atria no severe valve abnormalities noted pericardial effusion posterior vs fat pad noted
[2024-06-01 15:09] LABS: Amphetamine Screen, Urine Neg (NEGATIVE); Barbiturate Scree,Urine Neg (NEGATIVE); Benzodiazephine Screen, Urine Neg (NEGATIVE); Cannabinoid Screen, Urine Neg (NEGATIVE); Cocaine Screen, Urine Neg (NEGATIVE); Opiate Scree,Urine Neg (NEGATIVE); Phencyclidine Screen, Urine Neg (NEGATIVE)
--- NOTE | 2024-06-01 15:36 | DVHPN2 ---
Subjective Feels better but still some chest discomfort and not feeling at ease Reviewed: Care Plan, H&P, Labs, Medications, Previous Orders, Radiology Changes from previous H/P or p: No Changes Cardiovascular: Chest Pain Respiratory: Shortness of breath Musculoskeletal: other (Numbness and tingling bilateral upper and lower extremities) Objective Vitals Vital Signs Date Time Temp Pulse Resp B/P (MAP) Pulse Ox O2 Delivery O2 Flow Rate FiO2 06/01/24 13:00 97.5 60 17 104/58 (73) 97 97.5 05/31/24 08:51 Room Air* 0 21 General Appearance: Alert, Oriented X3, Cooperative, No acute distress HEENT: Atraumatic Lungs: Clear to auscultation Cardiovascular: Regular rate, Normal S1, Normal S2 Extremities: No edema Medications Current Medications Medications Dose Ordered Sig/Darian Route Start Time Stop Time Status Last Admin Dose Admin Aspirin 81 mg DAILY PO 06/01/24 10:00 06/01/24 08:40 81 MG Acetaminophen 650 mg Q6HP PRN PO 05/31/24 11:30 Nitroglycerin 0.4 mg Q5MINP PRN SL 05/31/24 11:30 Morphine Sulfate 2 mg Q30M PRN IV 05/31/24 11:30 Atorvastatin Calcium 10 mg HS PO 06/01/24 22:00 UNV Laboratory Results Laboratory Tests 06/01/24 05:28 Chemistry Test 06/01/24 05:28 Calcium Level 10.2 mg/dL (8.7-10.4) Magnesium Level 2.0 mg/dL (1.6-2.6) Coagulation Test 06/01/24 13:54 D-Dimer, Quantitative < 0.19 mg/L FEU (0.0-0.49) Assessment/Plan Assessment/Plan Chest pain and tightness of unclear etiology Hypercholesterolemia Possible anxiety Obesity Plan: Check D-dimer. Cardiology consultation. If D-dimer elevated we will obtain chest CT. Further plan per orders Plan discussed with: Patient My Orders Orders - YOSVANY CATES MD Procedure Category Date Status Time * Cardiology Consult CONS 06/01/24 Transmitted 15:28 Atorvastatin (Lipitor) PHA 06/01/24 Logged 22:00 Erythrocyte LAB 06/01/24 Transmitted Sedimentation Rate 15:29 C-Reactive Protein LAB 06/01/24 Transmitted 15:29 Date of Service: Jun 01, 2024 Billing Provider: YOSVANY CATES MD Common Visit Codes: [id number] INP/OBS CARE(HIGH) YOSVANY CATES MD Jun 01, 2024 15:36
[2024-06-01 16:32] LABS: Erythrocyte Sedimentation Rate 3 mm/hr (0-20)
[2024-06-01 16:47] VITALS: BP 113/77; PULSE 57; RESP 16; TEMP 98; O2SAT 97
--- NOTE | 2024-06-01 18:16 | DVHINCON2 ---
Date Seen: Jun 01, 2024 Referring Physician MD Bonnie Reason for Consultation Chest pain History of Present Illness This is a 39-year-old male patient who presents to the emergency room with chief complaint of chest pain. The patient reports that the chest pain began at approximately 7:00 a.m. yesterday while he was getting ready for work. He describes the pain as unprovoked, intermittent, dull in nature, and located under left clavicle area. He denies any radiation or associated symptoms. He came to the emergency room for further evaluation. Initial twelve lead electrocardiogram reveals normal sinus rhythm with PVC. Troponin levels have been negative X 2. Significant past medical history includes previous alcohol abuse, previous tobacco use, anxiety, and obesity. The patient reports he follows up with under trimmer in the outpatient setting. The patient reports he had a stress test approximately one year ago in which findings were normal to his knowledge. Past Medical History Past medical history reviewed. No other significant than mentioned above. Past Surgical History Denies Family History: Patient reports no known family medical history. Family History Family history reviewed. Social History Patient reports history of heavy alcohol abuse, has been sober for seven years The patient has a five pack-year history, quit smoking approximately seven years ago Denies any drug use Allergies: Coded Allergies: NO KNOWN ALLERGIES (Unverified , 07/06/21) Home Meds Active Scripts Omeprazole Magnesium (Omeprazole) 20 Mg Tab, 20 MG PO DAILY for 14 Days, #14 TAB Prov:PHUONG ZHANG MD 12/19/21 Home Meds Denies taking any prescribed medications Current Medications Current Medications Medications (Trade) Dose Ordered Sig/Darian Route PRN Reason Start Time Stop Time Status Last Admin Aspirin 81 mg DAILY PO 06/01/24 10:00 06/01/24 08:40 Atorvastatin Calcium (Lipitor) 40 mg HS PO 05/31/24 22:00 06/01/24 15:30 DC 05/31/24 21:55 Atorvastatin Calcium (Lipitor) 10 mg HS PO 06/01/24 22:00 Review of Systems Constitutional: No symptom reported Ears, Nose, & Throat: No symptom reported Eyes: No symptom reported Neurological: No symptoms reported Pulmonary/Respiratory: No symptoms reported Cardiovascular: Chest pain Gastrointestinal: No symptom reported Genitourinary: No symptom reported Musculoskeletal: No symptom reported Skin: No symptom reported Psychiatric: No symptom reported Endocrine: No symptom reported Hematologic/Lymphatic: No symptom reported Vital Signs Vital Signs Date Time Temp Pulse Resp B/P (MAP) Pulse Ox O2 Delivery O2 Flow Rate FiO2 06/01/24 16:47 98.0 57 16 113/77 (89) 97 98.0 06/01/24 08:30 Room Air* 0 21 Physical Exam General Appearance: Cooperative. Obese Pulmonary/Respiratory: Clear, bilateral breaths sounds. Cardiovascular/Chest: Regular rate and rhythm. Peripheral Pulses: 2+ Radial (R). 2+ Radial (L). 2+ Pedal (R). 2+ Pedal (L) Abdominal Exam: Normal bowel sounds. Ankle Exam: Negative ankle edema Lower extremities: Negative lower extremity edema Neuro/Mental Status: A/OX4, coherent. Thoughts/Psych: Normal thought pattern. Appropriate mood and affect. Good judgment and insight. Appearance: No acute distress. Skin Exam: Normal inspection. Normal color. Warm and dry. Labs/Diagnostic Data Labs Test 06/01/24 13:54 06/01/24 05:28 05/31/24 14:38 05/31/24 09:19 Range/Units D-Dimer, Quantitative < 0.19 0.0-0.49 mg/L FEU White Blood Count 4.8 # 4.4-10.8 10^3/uL Red Blood Count 5.03 4.5-5.90 10^6/uL Hemoglobin 15.9 13.5-17.5 g/dL Hematocrit 46.4 41.0-53.0 % Mean Corpuscular Volume 92.2 80.0-100.0 fL Mean Corpuscular Hemoglobin 31.6 28.0-32.0 pg Mean Corpuscular Hemoglobin Concent 34.3 32.0-36.0 g/dL Red Cell Distribution Width 13.2 11.8-14.3 % Platelet Count 171 140-450 10^3/uL Mean Platelet Volume 7.9 6.9-10.8 fL Neutrophils (%) (Auto) 66.2 37.0-80.0 % Lymphocytes (%) (Auto) 23.3 10.0-50.0 % Monocytes (%) (Auto) 6.9 0.0-12.0 % Eosinophils (%) (Auto) 3.2 0.0-7.0 % Basophils (%) (Auto) 0.4 0.0-2.0 % Neutrophils # (Auto) 3.2 1.6-8.6 10 ^3/uL Lymphocytes # (Auto) 1.1 0.4-5.4 10 ^3/uL Monocytes # (Auto) 0.3 0-1.3 10 ^3/uL Eosinophils # (Auto) 0.2 0-0.8 10 ^3/uL Basophils # (Auto) 0 0-0.2 10 ^3/uL Nucleated Red Blood Cells 0.3 % Erythrocyte Sedimentation Rate 3 0-20 mm/hr Sodium Level 141 136-145 mmol/L Potassium Level 4.1 3.5-5.1 mmol/L Chloride Level 108 H 98-107 mmol/L Carbon Dioxide Level 28 20-31 mmol/L Anion Gap 5 5-15 Blood Urea Nitrogen 14 9-23 mg/dL Creatinine 1.04 0.700-1.30 mg/dL Glomerular Filtration Rate Calc 93 >90 mL/min BUN/Creatinine Ratio 13.5 10.0-20.0 Serum Glucose 106 74-106 mg/dL Calcium Level 10.2 8.7-10.4 mg/dL Magnesium Level 2.0 1.6-2.6 mg/dL C-Reactive Protein High Sensitivity 0.20 <1.0 mg/dL Urine Opiates Screen Neg NEGATIVE Urine Fentanyl Screen Neg NEGATIVE Urine Barbiturates Screen Neg NEGATIVE Urine Phencyclidine Screen Neg NEGATIVE Urine Amphetamines Screen Neg NEGATIVE Urine Benzodiazepines Screen Neg NEGATIVE Urine Cocaine Screen Neg NEGATIVE Urine Cannabinoids Screen Neg NEGATIVE Troponin I High Sensitivity 3 L </=54 ng/L Test 05/31/24 08:19 Range/Units Hemoglobin A1c 5.1 <5.7 % A1C Triglycerides Level 78 < 150 mg/dL Cholesterol Level 188 < 200 mg/dL LDL Cholesterol 125 H < 100 mg/dL HDL Cholesterol 52 40-59 mg/dL Thyroid Stimulating Hormone (TSH) 0.68 0.55-4.78 uIU/mL Assessment Noncardiac chest pain Hyperlipidemia History of tobacco use Anxiety Morbid obesity Plan/Recommendation We will continue with the following plan/recommendations (Dr. Hinds): Plan reviewed and discussed with . Transthoracic echocardiogram reveals an EF 55-60% without any valve abnormalities. Given the patient's clinical presentation, negative troponin level, and unremarkable twelve lead electrocardiogram, doubt ACS. We will recommend supportive therapy. The patient should follow up with his primary under trimmer Dr. Prado in the outpatient setting. Consider outpatient stress test if deemed necessary per primary under trimmer discretion. There is no further inpatient cardiac workup indicated at this time. Thank you for allowing us to care for this patient. Please call with any questions or concerns. Critical care time spent:42 minutes This medical document was created using an electronic medical record system with voice recognition software and computerized dictation system. Although this document has been carefully reviewed, there might still be some phonetic and typographical errors. Occasional wrong-word or ``sound-alike substitutions may have occurred due to the inherent limitations of voice recognition software. These areas are purely typographical due to imperfections of the software programs and do not reflect any compromise in the patient's medical care. Please read the chart carefully and recognize, using context, where these substitutions have occurred. Plan discussed with: Patient NYHA Physical activity limitations: NA Date of Service: Jun 01, 2024 Billing Provider: SAMUEL HINDS MD Cardiology Common Codes: [id number] INP/OBS CARE (High) Cardiology Consultation Codes: [id number] CONSULT <45MIN MELY TREVIÑO Jun 01, 2024 18:16
[2024-06-01 20:00] VITALS: PULSE 57
[2024-06-01 21:00] VITALS: BP 103/64; PULSE 65; RESP 17; TEMP 98.3; O2SAT 96
[2024-06-01] MEDS: ATORVASTATIN 20 MG TAB PO SCH (21:01)
[2024-06-02 05:17] VITALS: BP 115/68; PULSE 62; RESP 17; TEMP 98; O2SAT 98
[2024-06-02 08:00] VITALS: PULSE 70
[2024-06-02 09:00] VITALS: BP 112/71; PULSE 67; RESP 16; TEMP 97.5; O2SAT 96
--- NOTE | 2024-06-02 09:19 | DVH ---
CHEST RADIOGRAPH Indication: fu Technique: Frontal and lateral view of the chest was obtained Comparison: CHEST TWO VIEWS ROUTINE on DOS: 12/19/21 FINDINGS: Lines and Tubes: None Lungs: Clear Pleura: No effusion. No pneumothorax. Cardiomediastinal contours: Unremarkable Bones: Unremarkable IMPRESSION: No evidence of acute disease.
--- NOTE | 2024-06-02 10:42 | DVHDS2 ---
Discharge Summary Date of Admission May 31, 2024 at 11:23 Date of Discharge: Jun 02, 2024 Admitting Diagnosis Chest Pain Labs/Diagnostic Data: Laboratory Results Test 06/01/24 13:54 06/01/24 05:28 05/31/24 14:38 05/31/24 09:19 D-Dimer, Quantitative < 0.19 mg/L FEU (0.0-0.49) White Blood Count 4.8 10^3/uL (4.4-10.8) Red Blood Count 5.03 10^6/uL (4.5-5.90) Hemoglobin 15.9 g/dL (13.5-17.5) Hematocrit 46.4 % (41.0-53.0) Mean Corpuscular Volume 92.2 fL (80.0-100.0) Mean Corpuscular Hemoglobin 31.6 pg (28.0-32.0) Mean Corpuscular Hemoglobin Concent 34.3 g/dL (32.0-36.0) Red Cell Distribution Width 13.2 % (11.8-14.3) Platelet Count 171 10^3/uL (140-450) Mean Platelet Volume 7.9 fL (6.9-10.8) Neutrophils (%) (Auto) 66.2 % (37.0-80.0) Lymphocytes (%) (Auto) 23.3 % (10.0-50.0) Monocytes (%) (Auto) 6.9 % (0.0-12.0) Eosinophils (%) (Auto) 3.2 % (0.0-7.0) Basophils (%) (Auto) 0.4 % (0.0-2.0) Neutrophils # (Auto) 3.2 10 ^3/uL (1.6-8.6) Lymphocytes # (Auto) 1.1 10 ^3/uL (0.4-5.4) Monocytes # (Auto) 0.3 10 ^3/uL (0-1.3) Eosinophils # (Auto) 0.2 10 ^3/uL (0-0.8) Basophils # (Auto) 0 10 ^3/uL (0-0.2) Nucleated Red Blood Cells 0.3 % Erythrocyte Sedimentation Rate 3 mm/hr (0-20) Sodium Level 141 mmol/L (136-145) Potassium Level 4.1 mmol/L (3.5-5.1) Chloride Level 108 mmol/L (98-107) Carbon Dioxide Level 28 mmol/L (20-31) Anion Gap 5 (5-15) Blood Urea Nitrogen 14 mg/dL (9-23) Creatinine 1.04 mg/dL (0.700-1.30) Glomerular Filtration Rate Calc 93 mL/min (>90) BUN/Creatinine Ratio 13.5 (10.0-20.0) Serum Glucose 106 mg/dL (74-106) Calcium Level 10.2 mg/dL (8.7-10.4) Magnesium Level 2.0 mg/dL (1.6-2.6) C-Reactive Protein High Sensitivity 0.20 mg/dL (<1.0) Urine Opiates Screen Neg (NEGATIVE) Urine Fentanyl Screen Neg (NEGATIVE) Urine Barbiturates Screen Neg (NEGATIVE) Urine Phencyclidine Screen Neg (NEGATIVE) Urine Amphetamines Screen Neg (NEGATIVE) Urine Benzodiazepines Screen Neg (NEGATIVE) Urine Cocaine Screen Neg (NEGATIVE) Urine Cannabinoids Screen Neg (NEGATIVE) Troponin I High Sensitivity 3 ng/L (</=54) Test 05/31/24 08:19 Hemoglobin A1c 5.1 % A1C (<5.7) Triglycerides Level 78 mg/dL (< 150) Cholesterol Level 188 mg/dL (< 200) LDL Cholesterol 125 mg/dL (< 100) HDL Cholesterol 52 mg/dL (40-59) Thyroid Stimulating Hormone (TSH) 0.68 uIU/mL (0.55-4.78) Other Laboratory Tests 06/01/24 05:28 Brief Hx & Hospital Course: 39-year-old gentleman admitted to the hospital from the emergency room with chest pain and some tightness. Cardiac workup was negative with negative troponin and echocardiogram. EF 55-60%. Cardiology consultation obtained and deemed the pain is not cardiac and recommended to follow up as outpatient with patient on fagot maker and have a stress test if deemed necessary as outpatient. D-dimer was negative. Chest x-ray negative. Patient does have some anxiety as well and he had maybe some panic attack with some tingling in upper and lower extremities during the episode Consults/Reason for consult Cardiology. No interventions Condition at Discharge: Good Final Diagnosis/Problems List Chest wall pain Anxiety Hypercholesterolemia/mild Obesity Discharge Disposition: Home Discharge Instruct/Medications Diet: Cardiac 2g Na,low cholest (2 gm sodium, low cholesterol) Activity: No Restrictions, As Tolerated Follow Up/Referral: PCP within one week. Cardiology within one week Medications: Baby aspirin 81 mg until seen by the Cardiology as outpatient. Discharge Statement: "Patient was advised to return to the ER or call 911 if any headaches, dizziness, shortness of breath, chest pain, abdominal pain, bleeding, fevers, or worsening of medical condition. Patient was counseled about treatment plan, medications, possible side effects, patientverbalized understanding. All questions were answered to the best of my ability. This discharge took greater then 30 minutes in planning, reviewing documentation, counseling the patient, and discussing with other team members." ASSESSMENT ASSESSMENT Assessment Date of Service: Jun 02, 2024 Billing Provider: YOSVANY CATES MD Common Visit Codes: [id number] DISCH DAY <30MIN YOSVANY CATES MD Jun 02, 2024 10:42
== END 2024-06-02 12:40 | disposition home or self-care (01) | DRG 313 ==
LOC: ER 07:57 → OVERFLOW 11:23 → TELE-WESTW 06-01 09:10
PROVIDERS: ADMIT Internal Medicine; ATTEND Internal Medicine
DX: R07.89 Other chest pain (principal); E66.01 Morbid (severe) obesity due to excess calories; E78.00 Pure hypercholesterolemia, unspecified; F41.9 Anxiety disorder, unspecified; I49.3 Ventricular premature depolarization; I10 Essential (primary) hypertension; F10.10 Alcohol abuse, uncomplicated; F12.90 Cannabis use, unspecified, uncomplicated; Y90.9 Presence of alcohol in blood, level not specified; Z87.891 Personal history of nicotine dependence; Z80.0 Family history of malignant neoplasm of digestive organs; Z79.82 Long term (current) use of aspirin; Z79.899 Other long term (current) drug therapy; Z68.31 Body mass index [BMI] 31.0-31.9, adult; Z79.1 Long term (current) use of non-steroidal anti-inflammatories (NSAID)
CPT/HCPCS: 36415; 71045; 71046; 80048; 80061; 80307; 83036; 83735; 84443; 84484; 85025; 85379; 85652; 86141; 93005; 93306; G0378

== ENCOUNTER 2024-10-17 10:56 | Emergency (ER) | payer BC ==
[~2024-10-17] VITALS: Ht 185.4 cm; Wt 120.8 kg
[2024-10-17 11:10] VITALS: BP 120/89; PULSE 90; RESP 17; TEMP 98.1; O2SAT 96
--- NOTE | 2024-10-17 12:26 | ED.PDOC ---
Eye-HPI HPI Comments A 39 year-old male presents to the ED with a chief complaint of possible foreign body to clavicle. Patient reports swallowing a breath mint while laying on back X1 hour ago, to which he believes it went down his trachea. Patient has no further complaints at this time and otherwise denies further associated symptoms of fever, chills, cough, dizziness, migraine, or N/V. Denies chest pain shortness of breath Denies inability to move neck, history of meningitis Denies difficulty swallowing nor persistent salivation Denies fevers chills night sweats Chief Complaint: Sore Throat Time Seen by MD: 12:18 Primary Care Provider: RAYMUNDO Reviewed Notes: Nurses Notes, Medications, Allergies Allergies: Coded Allergies: NO KNOWN ALLERGIES (Unverified , 07/06/21) Home Meds Active Scripts Omeprazole Magnesium (Omeprazole) 20 Mg Tab, 20 MG PO DAILY for 14 Days, #14 TAB Prov:PHUONG ZHANG MD 12/19/21 Information Source: Patient Mode of Arrival: Ambulatory Timing: Hours Duration: Since onset Onset: Spontaneous Past Medical History PAST MEDICAL HISTORY: Anxiety Surgical History: Denies all surgeries Family History Family History: Reviewed,noncontributory to illness Social History Smoker: Non-Smoker Alcohol: Sober Drugs: Denies Drug Use Lives In: Home Constitutional: denies: chills, diaphoresis, fatigue, fever, malaise, sweats, weakness, others EENTM: reports: others (PER HPI ); denies: blurred vision, double vision, ear bleeding, ear discharge, ear drainage, ear pain, ear ringing, eye pain, eye redness, hearing loss, mouth pain, mouth swelling, nasal discharge, nose bleeding, nose congestion, nose pain, photophobia, tearing, throat pain, throat swelling, voice changes Respiratory: denies: cough, hemoptysis, orthopnea, SOB at rest, shortness of breath, SOB with excertion, stridor, wheezing, others Cardiovascular: denies: chest pain, dizzy spells, diaphoresis, Dyspnea on exertion, edema, irregular heart beat, left arm pain, lightheadedness, palpitations, PND, syncope, others Gastrointestinal: denies: abdomen distended, abdominal pain, blood streaked bowels, constipated, diarrhea, dysphagia, difficulty swallowing, hematemesis, melena, nausea, poor appetite, poor fluid intake, rectal bleeding, rectal pain, vomiting, others Genitourinary: denies: burning, dysuria, flank pain, frequency, hematuria, incontinence, penile discharge, penile sore, pain, testicle pain, testicle swelling, urgency, others Neurological: denies: dizziness, fainting, headache, left sided numbness, left sided weakness, numbness, paresthesia, pre-existing deficit, right sided numbness, right sided weakness, seizure, speech problems, tingling, tremors, weakness, others Musculoskeletal: denies: back pain, gout, joint pain, joint swelling, muscle pain, muscle stiffness, neck pain, others Integumetry: denies: bruises, change in color, change in hair/nails, dryness, laceration, lesions, lumps, rash, wounds, others Allergic/Immunocompromised: denies: Difficulty Healing, Frequent Infections, Hives, Itching, others Hematologic/Lymphatic: denies: anemia, blood clots, easy bleeding, easy bruising, swollen glands, others Endocrine: denies: excessive hunger, excessive sweating, excessive thirst, excessive urination, flushing, intolerance to cold, intolerance to heat, unexplained weight gain, unexplained weight loss, others Psychiatric: denies: anxiety, bipolar disorder, depression, hopeless, panic disorder, schizophrenia, sleepless, suicidal, others All Other Systems: Reviewed and Negative Physical Exam General Appearance: Mild Distress, Normal HEENT: Normal ENT Inspection, Pharynx Normal, TMs Normal, Other (Uvula midline no airway obstrucution, MMM, no drooling, speaking complete sentences ) Neck: Full Range of Motion, Non-Tender, Normal, Normal Inspection Respiratory: Chest Non-Tender, Lungs Clear, No Accessory Muscle Use, No Respiratory Distress, Normal Breath Sounds Cardiovascular: No Edema, No JVD, No Murmur, No Gallop, Normal Peripheral Pulses, Regular Rate/Rhythm Breast Exam: Deferred Gastrointestinal: No Organomegaly, Non Tender, No Pulsatile Mass, Normal Bowel Sounds, Soft Genitalia: Deferred Pelvic: Deferred Rectal: Deferred Extremities: No calf tenderness, Normal capillary refill, Normal inspection, Normal range of motion, Non-tender, No pedal edema Musculoskeletal : Apperance: Normal Neurologic: Alert, 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 Was a procedure done?: No EENT DIFF Eye: Other Sore Throat: Epiglottitis, Pharyngitis, Streptococcal, Viral Pharyngitis, Other (Foreign Body ) X-Ray, Labs, Meds, VS Vital Signs Date Time Temp Pulse Resp B/P (MAP) Pulse Ox O2 Delivery O2 Flow Rate FiO2 10/17/24 11:10 98.1 90 17 120/89 (99) 96 98.1 X-Ray, Labs, Meds, VS Comment A 39 year-old male presents to the ED with a chief complaint of possible foreign body to clavicle. Patient arrives alert and oriented, ABC's intact, afebrile, vital signs stable, saturating well in room air Peripheral IV insertion+ labs were ordered. CBC was ordered to exclude anemia, blood loss, or infection. BMP was ordered to exclude electrolyte abnormalities, renal failure, dehydr ation, hyperglycemia CMP was ordered to exclude electrolyte abnormalities, renal failure, dehydration, hyperglycemia and/or liver enzyme abnormalities. PT and INR were ordered to rule out coagulopathy. Troponin and BNP were ordered to rule out myocardial infarction, or congestive heart failure. Urinalysis was ordered to rule out UTI or hematuria. Diagnostic imaging ordered by me and results interpreted by radiology :CXR Pt eloped from the emergency room Time of 1ST Reevaluation: 12:51 Reevaluation 1ST: Unchanged Patient Education/Counseling: Diagnosis, Treatment Family Education/Counseling: No Family Present SEPSIS Sepsis Screen Date sepsis recognized/suspect: Oct 17, 2024 Time Sepsis recognized/suspect: 1110 Recent Procedure: No On Antibiotic Therapy: No Respiratory Rate >20: No Heart Rate >90: No Temp<36 C (96.8 F) or >38.3 C: No SBP <90 or MAP <65 mmHG: No New Acute Mental Status Change: No Is the patient on CPAP, BIPAP,: No Vital Signs Date Time Temp Pulse Resp B/P (MAP) Pulse Ox O2 Delivery O2 Flow Rate FiO2 10/17/24 11:10 98.1 90 17 120/89 (99) 96 98.1 Departure 1 Departure Time of Disposition: 16:53 Impression: Primary Impression: Eloped from emergency department Disposition: 07 LEFT AWOL/ELOPED Condition: Poor Discharged With: Self Critical Care Note Critical Care Time?: No Stability Stability form required: No Heart Score Heart Score: Heart Score Response (Comments) Value History N/A 0 EKG N/A 0 Age N/A 0 Risk Factors N/A 0 Troponin N/A 0 Total 0 I personally scribed for BINA CLEARY NP ([email or web address]) on 10/17/24 at 12:26. Electronically submitted by Roya [facility]). BINA CLEARY NP Oct 17, 2024 12:26
== END 2024-10-17 13:40 | disposition left against medical advice (07) ==
LOC: ER 10:56
DX: R09.A9 Foreign body sensation, other site (principal); F41.9 Anxiety disorder, unspecified; Z79.899 Other long term (current) drug therapy

== ENCOUNTER 2025-01-05 17:41 | Emergency (ER) | payer BC ==
[~2025-01-05] VITALS: Ht 185.4 cm; Wt 120.0 kg
--- NOTE | 2025-01-05 17:55 | ECG ---
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
--- NOTE | 2025-01-05 18:41 | ED.PDOC ---
History of Present Illness HPI Comments 39-year-old male who came to ER for dizziness. Patient states for the past few hours, he has been experiencing episodes of palpitations, dizziness and anxiety. Patient was seen and admitted here before last May 2024, similar complains, seen by community service officer coordinator, currently diagnosed with some form of arrhythmia. Patient denies any chest pains or shortness breath. Patient states he feels better at this time of care Chief Complaint: Dizziness Time Seen by MD: 18:40 Primary Care Provider: RAYMUNDO Reviewed Notes: Nurses Notes Allergies: Coded Allergies: NO KNOWN ALLERGIES (Unverified , 07/06/21) Home Meds Active Scripts Omeprazole Magnesium (Omeprazole) 20 Mg Tab, 20 MG PO DAILY for 14 Days, #14 TAB Prov:PHUONG ZHANG MD 12/19/21 Information Source: Patient Mode of Arrival: Ambulatory Severity: Moderate Timing: Hours Duration: Intermittent Past Medical History PAST MEDICAL HISTORY: Anxiety, HTN Surgical History: Denies all surgeries Family History Family History: Reviewed,noncontributory to illness Social History Smoker: Non-Smoker, Quit Greater Than 1 Year Alcohol: Sober Drugs: Denies Drug Use Lives In: Home Constitutional: denies: chills, diaphoresis, fatigue, fever, malaise, sweats, weakness, others EENTM: denies: blurred vision, double vision, ear bleeding, ear discharge, ear drainage, ear pain, ear ringing, eye pain, eye redness, hearing loss, mouth pain, mouth swelling, nasal discharge, nose bleeding, nose congestion, nose pain, photophobia, tearing, throat pain, throat swelling, voice changes, others Respiratory: denies: cough, hemoptysis, orthopnea, SOB at rest, shortness of breath, SOB with excertion, stridor, wheezing, others Cardiovascular: reports: dizzy spells, palpitations; denies: chest pain, diaphoresis, Dyspnea on exertion, edema, irregular heart beat, left arm pain, lightheadedness, PND, syncope, others Gastrointestinal: denies: abdomen distended, abdominal pain, blood streaked bowels, constipated, diarrhea, dysphagia, difficulty swallowing, hematemesis, melena, nausea, poor appetite, poor fluid intake, rectal bleeding, rectal pain, vomiting, others Genitourinary: denies: burning, dysuria, flank pain, frequency, hematuria, incontinence, penile discharge, penile sore, pain, testicle pain, testicle swell ing, urgency, others Neurological: denies: dizziness, fainting, headache, left sided numbness, left sided weakness, numbness, paresthesia, pre-existing deficit, right sided numbness, right sided weakness, seizure, speech problems, tingling, tremors, weakness, others Musculoskeletal: denies: back pain, gout, joint pain, joint swelling, muscle pain, muscle stiffness, neck pain, others Integumetry: denies: bruises, change in color, change in hair/nails, dryness, laceration, lesions, lumps, rash, wounds, others Allergic/Immunocompromised: denies: Difficulty Healing, Frequent Infections, Hives, Itching, others Hematologic/Lymphatic: denies: anemia, blood clots, easy bleeding, easy bruising, swollen glands, others Endocrine: denies: excessive hunger, excessive sweating, excessive thirst, excessive urination, flushing, intolerance to cold, intolerance to heat, unexplained weight gain, unexplained weight loss, others Psychiatric: denies: anxiety, bipolar disorder, depression, hopeless, panic disorder, schizophrenia, sleepless, suicidal, others Physical Exam General Appearance: No Apparent Distress, Normal HEENT: Normal ENT Inspection, Pharynx Normal, TMs Normal Neck: Full Range of Motion, Non-Tender, Normal, Normal Inspection Respiratory: Chest Non-Tender, Lungs Clear, No Accessory Muscle Use, No Respiratory Distress, Normal Breath Sounds Cardiovascular: No Edema, No JVD, No Murmur, No Gallop, Normal Peripheral Pulses, Regular Rate/Rhythm Breast Exam: Deferred Gastrointestinal: No Organomegaly, Non Tender, No Pulsatile Mass, Normal Bowel Sounds, Soft Genitalia: Deferred Pelvic: Deferred Rectal: Deferred Extremities: No calf tenderness, Normal capillary refill, Normal inspection, Normal range of motion, Non-tender, No pedal edema Musculoskeletal : Apperance: Normal Neurologic: Alert, manufacturing project 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 Was a procedure done?: No EKG EKG : Pulse Rate (adult): 84 Cardiac Rhythm: NSR Comments Ventricular premature complex Differential Dx Considerations may include: Anemia, electrolyte imbalance, palpitations, anxiety X-Ray, Labs, Meds, VS Vital Signs Date Time Temp Pulse Resp B/P (MAP) Pulse Ox O2 Delivery O2 Flow Rate FiO2 01/05/25 18:41 84 01/05/25 17:48 80 01/05/25 17:43 98.1 94 20 136/98 96 98.1 Lab Test 01/05/25 18:47 Range/Units White Blood Count 6.2 4.4-10.8 10^3/uL Red Blood Count 5.11 4.5-5.90 10^6/uL Hemoglobin 16.3 13.5-17.5 g/dL Hematocrit 46.5 41.0-53.0 % Mean Corpuscular Volume 91.0 80.0-100.0 fL Mean Corpuscular Hemoglobin 31.8 28.0-32.0 pg Mean Corpuscular Hemoglobin Concent 35.0 32.0-36.0 g/dL Red Cell Distribution Width 13.5 11.8-14.3 % Platelet Count 214 140-450 10^3/uL Mean Platelet Volume 7.9 6.9-10.8 fL Neutrophils (%) (Auto) 68.2 37.0-80.0 % Lymphocytes (%) (Auto) 22.6 10.0-50.0 % Monocytes (%) (Auto) 6.4 0.0-12.0 % Eosinophils (%) (Auto) 2.4 0.0-7.0 % Basophils (%) (Auto) 0.4 0.0-2.0 % Neutrophils # (Auto) 4.2 1.6-8.6 10 ^3/uL Lymphocytes # (Auto) 1.4 0.4-5.4 10 ^3/uL Monocytes # (Auto) 0.4 0-1.3 10 ^3/uL Eosinophils # (Auto) 0.1 0-0.8 10 ^3/uL Basophils # (Auto) 0 0-0.2 10 ^3/uL Nucleated Red Blood Cells 0.1 % Sodium Level 143 136-145 mmol/L Potassium Level 3.8 3.5-5.1 mmol/L Chloride Level 104 98-107 mmol/L Carbon Dioxide Level 30 20-31 mmol/L Anion Gap 9 5-15 Blood Urea Nitrogen 15 9-23 mg/dL Creatinine 1.47 H 0.700-1.30 mg/dL Glomerular Filtration Rate Calc 61 >90 mL/min BUN/Creatinine Ratio 10.2 10.0-20.0 Serum Glucose 90 74-106 mg/dL Calcium Level 9.5 8.7-10.4 mg/dL Troponin I High Sensitivity 5 </=54 ng/L EXAM: XY CHEST PORTABLE HISTORY: Chest pain TECHNIQUE: 1 view of the chest COMPARISON: XY CHEST TWO VIEWS ROUTINE on DOS: 06/02/24 FINDINGS/IMPRESSION: LUNGS: No pleural effusion, consolidation, or pneumothorax. MEDIASTINUM: Unremarkable. BONES: No acute osseous abnormality. OTHER: None. Time of 1ST Reevaluation: 18:31 Reevaluation 1ST: Unchanged Patient Education/Counseling: Diagnosis, Treatment Family Education/Counseling: No Family Present SEPSIS Sepsis Screen Date sepsis recognized/suspect: Jan 05, 2025 Time Sepsis recognized/suspect: 1744 Recent Procedure: No On Antibiotic Therapy: No Respiratory Rate >20: No Heart Rate >90: No Temp<36 C (96.8 F) or >38.3 C: No SBP <90 or MAP <65 mmHG: No New Acute Mental Status Change: No Is the patient on CPAP, BIPAP,: No Physician Orders Chest Portable (01/05/25 18:33) Vital Signs Date Time Temp Pulse Resp B/P (MAP) Pulse Ox O2 Delivery O2 Flow Rate FiO2 01/05/25 18:41 84 01/05/25 17:48 80 01/05/25 17:43 98.1 94 20 136/98 96 98.1 Laboratory Tests Test 01/05/25 18:47 White Blood Count 6.2 10^3/uL (4.4-10.8) Departure 1 Departure Time of Disposition: 20:15 (Patient presented with chest pain that was concerning for possible STEMI, ACS, PE, Pneumonia, Muscle Strain, COPD, Dissection. Data: 1. I ordered and reviewed the result of at least 3 labs inc luding a CBC, BMP, and Troponin. 2. I independently interpreted the following tests: EKG which shows normal sinus rhythm and Chest X-ray which shows a benign chest.Risk:This patient presented with a high risk of morbidity due to further diagnostic testing or treatment and may suffer from an acute cardiac or respiratory disorder. After review of all the data patient is unlikely to have a pe , dissection, and is low risk for acs. Patient is stable at this time.Workup so far is benign and patient will be discharged with outpatient followup. ) Impression: Primary Impression: Palpitations Disposition: HOME / SELF CARE / HOMELESS Condition: Stable Additional Instructions: You presented today with palpitations. Your workup today was benign including labs, troponin, EKG, chest x-ray. Your pain may be from musculoskeletal strain, acid reflux, anxiety, or many other factors. It is important to follow up with your regular doctor within 1 week. If your symptoms worsen or you have any other concerns please return to the emergency room. Discharged With: Self Critical Care Note Critical Care Time?: No Stability Stability form required: No Heart Score Heart Score: Heart Score Response (Comments) Value History Slightly Suspicious 0 EKG Normal 0 Age <45 0 Risk Factors 1 or 2 risk factors 1 Troponin Normal limit 0 Total 1 I personally scribed for MIR BOWDEN MD [facility] on 01/05/25 at 18:41. Electronically submitted by Edwin Hay ([employer]). I personally scribed for MIR BOWDEN MD ([email or web address]) on 01/05/25 at 19:34. Electronically submitted by Edwin Hay ([facility] [employer]). MIR BOWDEN MD Jan 05, 2025 18:41
[2025-01-05 19:04] LABS: Hematocrit 46.5 % (41.0-53.0); Hemoglobin 16.3 g/dL (13.5-17.5); Mean Corpuscular Hemoglobin 31.8 pg (28.0-32.0); Mean Corpuscular Volume 91.0 fL (80.0-100.0); Nucleated Red Blood Cells % 0.1 %
[2025-01-05 19:05] LABS: Chloride 104 mmol/L (98-107); Potassium 3.8 mmol/L (3.5-5.1); Sodium 143 mmol/L (136-145)
[2025-01-05 19:06] LABS: Anion Gap 9 (5-15); Calcium 9.5 mg/dL (8.7-10.4); Carbon Dioxide 30 mmol/L (20-31)
[2025-01-05 19:11] LABS: BUN/Creatinine Ratio 10.2 (10.0-20.0); Blood Urea Nitrogen 15 mg/dL (9-23)
[2025-01-05 19:22] LABS: Glucose 90 mg/dL (74-106)
--- NOTE | 2025-01-05 19:27 | DVH ---
EXAM: XY CHEST PORTABLE HISTORY: Chest pain TECHNIQUE: 1 view of the chest COMPARISON: XY CHEST TWO VIEWS ROUTINE on DOS: 06/02/24 FINDINGS/IMPRESSION: LUNGS: No pleural effusion, consolidation, or pneumothorax. MEDIASTINUM: Unremarkable. BONES: No acute osseous abnormality. OTHER: None.
[2025-01-05 20:40] VITALS: BP 134/84; PULSE 68; RESP 12; TEMP 98.6; O2SAT 98
== END 2025-01-05 20:43 | disposition home or self-care (01) ==
LOC: ER 17:43
DX: R00.2 Palpitations (principal); F41.9 Anxiety disorder, unspecified; I10 Essential (primary) hypertension; Z79.899 Other long term (current) drug therapy; Z87.891 Personal history of nicotine dependence
CPT/HCPCS: 36415; 71045; 80048; 84484; 85025; 93005